=== PATIENT | female | born 1990 | race Caucasian/White ===

== ENCOUNTER 2020-03-09 13:58 | Emergency (ER) | payer OTHER, MEDICAID, SELFPAY ==
[2020-03-09 14:25] VITALS: BP 136/79; PULSE 86; RESP 18; TEMP 36.6; O2SAT 100; BMI 21.4
--- NOTE | 2020-03-09 14:31 | ED_ITS ---
HPI - Medical Clearance <Valentin BonillaHUE Calvillo - Last Filed: 03/09/20 16:58> General Chief complaint: Toxicology Problem Stated complaint: Clearing for detox Time Seen by Provider: 03/09/20 14:05 Source: patient Mode of arrival: Ambulatory Limitations: no limitations History of Present Illness HPI Narrative: This is a 29-year-old female, smoker, with medical history significant for substance abuse and smokes meth and heroin, marijuana, depression, and anxiety presents to ED in request of medical clearance for detox. Patient reports she usually uses methe and heroin about 1 g a day or as much as she can get for last 10 months. Patient had another detox and treatment last summer in [place] but relapsed after 6 months. Patient states she had start using drugs about 2 years ago initially. Patient reports she has good support system. Her also uses drugs but he is also checking himself for detox program. Her motivation this time is trying to get my life back and for well-being. Last use for heroin and meth was this morning. Patient denies history of homicidal suicidal ideation or attempts. Patient is not suicidal or homicidal at this time. Patient denies exposure to known COVID, symptoms for Covid or recent travels. Patient had contacted [facility] and was informed there is available bed at this time. Patient denies using alcohol. Related Information Allergies Allergy/AdvReac Type Severity Reaction Status Date / Time No Known Drug Allergies Allergy Verified 03/09/20 14:25 Review of Systems <Valentin BonillaHUE Calvillo - Last Filed: 03/09/20 16:58> Review of Systems Narrative: General: Denies fever, chills, fatigue, malaise, sweats. HEENT: Denies sinus pain, ear pain, sore throat, difficulty swallowing, dizziness. Respiratory: Denies dyspnea, cough, wheezing, hemoptysis, sputum. Cardiovascular: Denies chest pain, palpitations, orthopnea, edema. Gastrointestinal: Denies nausea, vomiting, abdominal pain, diarrhea, constipation, melena. : Denies dysuria, frequency, incontinence, hematuria, urinary retention. Musculoskeletal: Denies weakness, joint pain or bony pain. Skin: Denies rash, skin lesions, or other. Neurologic: Denies weakness, headache, numbness, change in speech, confusion, seizures, incoordination. Psychiatric: See HPI 12-point review of systems is negative except for those stated above. Patient History <HUE Olmos - Last Filed: 03/09/20 16:58> Medical History (Updated 03/09/20 @ 16:53 by HUE Olmos) Anxiety (Acute) Depression (Acute) Substance addiction (Acute) Social History Smoking Status: Current every day smoker Smoking Status: Current every day smoker Substance Use Type: marijuana, heroin and methamphetamine Exam <HUE Olmos - Last Filed: 03/09/20 16:58> Narrative Exam Narrative: General appearance: well developed, well nourished, in no acute distress. Head: normocephalic, atraumatic, no scalp lesions, non-tender. ENT: Hearing grossly intact. Nose without bleeding, purulent discharge. Airway patent. Neck/Thyroid: neck supple, full range of motion, no visible masses or meningeal signs. No JVD, non-tender without lymphadenopathy. Skin: no suspicious rashes, lesions over visible areas. Warm and dry and appropriate color for ethnicity. Heart: no clubbing, no cyanosis, no edema. S1 and S2 normal. RRR w/o murmurs, clicks, or bruits. Lungs: Breathing even and unlabored. No stridor. No accessory muscles used. Able to speak in full sentences. Chest: normal shape and expansion. Abdomen: non-obese, non-distended. Neurologic: alert and oriented. Cognitive exam, IMAGER and PNS grossly intact on informal exam. Psych: good eye contact, normal affect. Initial Vital Signs Initial Vital Signs: Vital Signs Temperature 97.9 F 03/09/20 14:25 Pulse Rate 86 03/09/20 14:25 Respiratory Rate 18 03/09/20 14:25 Blood Pressure 136/79 03/09/20 14:25 Pulse Oximetry 100 03/09/20 14:25 <Dolly Rivera DO - Last Filed: 03/10/20 07:43> Initial Vital Signs Initial Vital Signs: Vital Signs Temperature 97.9 F 03/09/20 14:25 Pulse Rate 86 03/09/20 14:25 Respiratory Rate 18 03/09/20 14:25 Blood Pressure 136/79 03/09/20 14:25 Pulse Oximetry 100 03/09/20 14:25 Scores <HUE Olmos - Last Filed: 03/09/20 16:58> GCS [place] coma scale eye opening: Spontaneous [place] coma scale verbal response: Orientated [place] coma scale motor response: Obey commands [place] coma scale total score: 15 [facility] - Medical Clearance <HUE Olmos - Last Filed: 03/09/20 16:58> Differential Diagnosis Differential diagnosis: Likely other (Medical clearance) Medical Records Attestation: I reviewed the patient's medical records. Lab Data Attestation: I reviewed the patient's lab results. Result diagrams: 03/09/20 14:48 03/09/20 14:48 Labs: Lab Results 03/09/20 03/09/20 03/09/20 Range/Units 14:25 14:25 14:25 WBC (4.5-11.0) X10^3/uL RBC (4.0-5.2) X10^6/uL Hgb (12.0-16.0) g/dL Hct (36-46) % MCV (80-100) fL MCH (26-34) PG MCHC (30-36) % RDW (11.6-14.8) % Plt Count (150-400) X10^3/uL Neut % (Auto) (50-75) % Lymph % (Auto) (25-40) % [place] % (Auto) (3-14) % Eos % (Auto) (2-4) % Baso % (Auto) (0-2) % Neut # (Auto) (7413-1721) /uL Lymph # (Auto) (6782-8822) /uL [place] # (Auto) (0-900) /uL Eos # (Auto) (0-450) /uL Baso # (Auto) (0-100) /uL Sodium (137-145) mmol/L Potassium (3.4-5.1) mmol/L Chloride (98-107) mmol/L Carbon Dioxide (22-32) mmol/L BUN (7-17) mg/dL Creatinine (0.52-1.04) mg/dL Estimated GFR (>60) mL/min BUN/Creatinine Ratio (6-22) Glucose (70-100) mg/dL Calcium (8.4-10.2) mg/dL Total Bilirubin (0.2-1.3) mg/dL AST (14-36) IU/L ALT (<35) IU/L Alkaline Phosphatase (38-126) U/L Total Protein (6.3-8.2) g/dL Albumin (3.5-5.0) g/dL Globulin (1.7-4.1) g/dL Albumin/Globulin Ratio (1.0-2.8) TSH (0.47-4.68) uIU/mL Free T4 (0.78-2.19) ng/dL Urine Color Yellow Urine Appearance Sl cloudy Urine pH 5.5 (4.5-8.0) Ur Specific [place] >=1.030 H (1.000-1.035) Urine Protein Negative (Negative) Urine Glucose (UA) Negative (Negative) g/dL Urine Ketones Negative (NEGATIVE) Urine Occult Blood Negative (Negative) Urine Nitrate Negative (Negative) Urine Bilirubin Negative (NEGATIVE) Urine Urobilinogen 0.2 (0.2) E.U./dL Ur Leukocyte Esterase Negative (NEGATIVE) Urine RBC 0-1/hpf (0-5/HPF) Urine WBC 1-5/hpf (0-5/HPF) Ur Squamous Epith Cells 5-10 /hpf H (0-5/HPF) Calcium Oxalate Crystal Occasional H Urine Bacteria Moderate (10-30) H (None) Ur Culture Indicated? Cult not indicated Urine Test Negative (Negative) Salicylates (<20) mg/dL U Opiates 300ng/mL cut Positive H (Negative) Ur Oxycodone Screen Negative (Negative) Urine Methadone Screen Negative (Negative) Acetaminophen (10-30) ug/mL Ur Barbiturates Screen Negative (Negative) U Tricyclic Antidepress Negative (Negative) Ur Phencyclidine Scrn Negative (Negative) Ur Amphetamines Screen Positive H (Negative) U Methamphetamines Scrn Positive H (Negative) Ur MDMA Scrn (Ecstasy) Negative (Negative) U Benzodiazepines Scrn Negative (Negative) Urine Cocaine Screen Negative (Negative) U Marijuana (THC) Screen Positive H (Negative) Ethyl Alcohol ( - 10) mg/dL 03/09/20 03/09/20 03/09/20 Range/Units 14:48 14:48 14:48 WBC 7.1 (4.5-11.0) X10^3/uL RBC 4.24 (4.0-5.2) X10^6/uL Hgb 12.6 (12.0-16.0) g/dL Hct 38.4 (36-46) % MCV 90.5 (80-100) fL MCH 29.6 (26-34) PG MCHC 32.7 (30-36) % RDW 12.7 (11.6-14.8) % Plt Count 248 (150-400) X10^3/uL Neut % (Auto) 60.0 (50-75) % Lymph % (Auto) 29.1 (25-40) % [place] % (Auto) 8.4 (3-14) % Eos % (Auto) 1.9 L (2-4) % Baso % (Auto) 0.6 (0-2) % Neut # (Auto) 4300 (2415-4335) /uL Lymph # (Auto) 2100 (6396-6822) /uL [place] # (Auto) 600 (0-900) /uL Eos # (Auto) 100 (0-450) /uL Baso # (Auto) 0 (0-100) /uL Sodium 137 (137-145) mmol/L Potassium 4.9 (3.4-5.1) mmol/L Chloride 103 (98-107) mmol/L Carbon Dioxide 29 (22-32) mmol/L BUN 19 H (7-17) mg/dL Creatinine 0.71 (0.52-1.04) mg/dL Estimated GFR > 60.0 (>60) mL/min BUN/Creatinine Ratio 26.8 H (6-22) Glucose 104 H (70-100) mg/dL Calcium 9.4 (8.4-10.2) mg/dL Total Bilirubin 0.4 (0.2-1.3) mg/dL AST 23 (14-36) IU/L ALT 16 (<35) IU/L Alkaline Phosphatase 89 (38-126) U/L Total Protein 7.2 (6.3-8.2) g/dL Albumin 4.2 (3.5-5.0) g/dL Globulin 3.0 (1.7-4.1) g/dL Albumin/Globulin Ratio 1.4 (1.0-2.8) TSH 2.54 (0.47-4.68) uIU/mL Free T4 1.05 (0.78-2.19) ng/dL Urine Color Urine Appearance Urine pH (4.5-8.0) Ur Specific [place] (1.000-1.035) Urine Protein (Negative) Urine Glucose (UA) (Negative) g/dL Urine Ketones (NEGATIVE) Urine Occult Blood (Negative) Urine Nitrate (Negative) Urine Bilirubin (NEGATIVE) Urine Urobilinogen (0.2) E.U./dL Ur Leukocyte Esterase (NEGATIVE) Urine RBC (0-5/HPF) Urine WBC (0-5/HPF) Ur Squamous Epith Cells (0-5/HPF) Calcium Oxalate Crystal Urine Bacteria (None) Ur Culture Indicated? Urine Test (Negative) Salicylates < 1.0 (<20) mg/dL U Opiates 300ng/mL cut (Negative) Ur Oxycodone Screen (Negative) Urine Methadone Screen (Negative) Acetaminophen < 10 L (10-30) ug/mL Ur Barbiturates Screen (Negative) U Tricyclic Antidepress (Negative) Ur Phencyclidine Scrn (Negative) Ur Amphetamines Screen (Negative) U Methamphetamines Scrn (Negative) Ur MDMA Scrn (Ecstasy) (Negative) U Benzodiazepines Scrn (Negative) Urine Cocaine Screen (Negative) U Marijuana (THC) Screen (Negative) Ethyl Alcohol < 10 ( - 10) mg/dL MDM Narrative Medical decision making narrative: This is a 29-year-old female who presents to ED for medical clearance before she admitting herself to [facility] detox facility for substance use-heroin, meth, and marijuana. Patient has medical history of depression and anxiety and takes Zoloft 200 mg daily which she had taken this morning. Patient is alert, oriented, cooperative, denies suicidal or homicidal thoughts. Patient is not . Lab tests are unremarkable. UDS is positive for amphetamine, methamphetamine, opiates and marijuana. Patient denies known exposure to COVID, denies any COVID related symptoms, and denies recent travel. Patient's physical exam is unremarkable. Vital signs stable and afebriile. Patient is medically cleared, ready for discharge and safe to go to detox facility. The patient will be taken by her sister after she is discharged from the hospital. <Dolly Rivera DO - Last Filed: 03/10/20 07:43> Lab Data Labs: Lab Results 03/09/20 03/09/20 03/09/20 Range/Units 14:25 14:25 14:25 WBC (4.5-11.0) X10^3/uL RBC (4.0-5.2) X10^6/uL Hgb (12.0-16.0) g/dL Hct (36-46) % MCV (80-100) fL MCH (26-34) PG MCHC (30-36) % RDW (11.6-14.8) % Plt Count (150-400) X10^3/uL Neut % (Auto) (50-75) % Lymph % (Auto) (25-40) % [place] % (Auto) (3-14) % Eos % (Auto) (2-4) % Baso % (Auto) (0-2) % Neut # (Auto) (2837-0600) /uL Lymph # (Auto) (0624-3229) /uL [place] # (Auto) (0-900) /uL Eos # (Auto) (0-450) /uL Baso # (Auto) (0-100) /uL Sodium (137-145) mmol/L Potassium (3.4-5.1) mmol/L Chloride (98-107) mmol/L Carbon Dioxide (22-32) mmol/L BUN (7-17) mg/dL Creatinine (0.52-1.04) mg/dL Estimated GFR (>60) mL/min BUN/Creatinine Ratio (6-22) Glucose (70-100) mg/dL Calcium (8.4-10.2) mg/dL Total Bilirubin (0.2-1.3) mg/dL AST (14-36) IU/L ALT (<35) IU/L Alkaline Phosphatase (38-126) U/L Total Protein (6.3-8.2) g/dL Albumin (3.5-5.0) g/dL Globulin (1.7-4.1) g/dL Albumin/Globulin Ratio (1.0-2.8) TSH (0.47-4.68) uIU/mL Free T4 (0.78-2.19) ng/dL Urine Color Yellow Urine Appearance Sl cloudy Urine pH 5.5 (4.5-8.0) Ur Specific [place] >=1.030 H (1.000-1.035) Urine Protein Negative (Negative) Urine Glucose (UA) Negative (Negative) g/dL Urine Ketones Negative (NEGATIVE) Urine Occult Blood Negative (Negative) Urine Nitrate Negative (Negative) Urine Bilirubin Negative (NEGATIVE) Urine Urobilinogen 0.2 (0.2) E.U./dL Ur Leukocyte Esterase Negative (NEGATIVE) Urine RBC 0-1/hpf (0-5/HPF) Urine WBC 1-5/hpf (0-5/HPF) Ur Squamous Epith Cells 5-10 /hpf H (0-5/HPF) Calcium Oxalate Crystal Occasional H Urine Bacteria Moderate (10-30) H (None) Ur Culture Indicated? Cult not indicated Urine Test Negative (Negative) Salicylates (<20) mg/dL U Opiates 300ng/mL cut Positive H (Negative) Ur Oxycodone Screen Negative (Negative) Urine Methadone Screen Negative (Negative) Acetaminophen (10-30) ug/mL Ur Barbiturates Screen Negative (Negative) U Tricyclic Antidepress Negative (Negative) Ur Phencyclidine Scrn Negative (Negative) Ur Amphetamines Screen Positive H (Negative) U Methamphetamines Scrn Positive H (Negative) Ur MDMA Scrn (Ecstasy) Negative (Negative) U Benzodiazepines Scrn Negative (Negative) Urine Cocaine Screen Negative (Negative) U Marijuana (THC) Screen Positive H (Negative) Ethyl Alcohol ( - 10) mg/dL 03/09/20 03/09/20 03/09/20 Range/Units 14:48 14:48 14:48 WBC 7.1 (4.5-11.0) X10^3/uL RBC 4.24 (4.0-5.2) X10^6/uL Hgb 12.6 (12.0-16.0) g/dL Hct 38.4 (36-46) % MCV 90.5 (80-100) fL MCH 29.6 (26-34) PG MCHC 32.7 (30-36) % RDW 12.7 (11.6-14.8) % Plt Count 248 (150-400) X10^3/uL Neut % (Auto) 60.0 (50-75) % Lymph % (Auto) 29.1 (25-40) % [place] % (Auto) 8.4 (3-14) % Eos % (Auto) 1.9 L (2-4) % Baso % (Auto) 0.6 (0-2) % Neut # (Auto) 4300 (0470-3354) /uL Lymph # (Auto) 2100 (8709-4850) /uL [place] # (Auto) 600 (0-900) /uL Eos # (Auto) 100 (0-450) /uL Baso # (Auto) 0 (0-100) /uL Sodium 137 (137-145) mmol/L Potassium 4.9 (3.4-5.1) mmol/L Chloride 103 (98-107) mmol/L Carbon Dioxide 29 (22-32) mmol/L BUN 19 H (7-17) mg/dL Creatinine 0.71 (0.52-1.04) mg/dL Estimated GFR > 60.0 (>60) mL/min BUN/Creatinine Ratio 26.8 H (6-22) Glucose 104 H (70-100) mg/dL Calcium 9.4 (8.4-10.2) mg/dL Total Bilirubin 0.4 (0.2-1.3) mg/dL AST 23 (14-36) IU/L ALT 16 (<35) IU/L Alkaline Phosphatase 89 (38-126) U/L Total Protein 7.2 (6.3-8.2) g/dL Albumin 4.2 (3.5-5.0) g/dL Globulin 3.0 (1.7-4.1) g/dL Albumin/Globulin Ratio 1.4 (1.0-2.8) TSH 2.54 (0.47-4.68) uIU/mL Free T4 1.05 (0.78-2.19) ng/dL Urine Color Urine Appearance Urine pH (4.5-8.0) Ur Specific [place] (1.000-1.035) Urine Protein (Negative) Urine Glucose (UA) (Negative) g/dL Urine Ketones (NEGATIVE) Urine Occult Blood (Negative) Urine Nitrate (Negative) Urine Bilirubin (NEGATIVE) Urine Urobilinogen (0.2) E.U./dL Ur Leukocyte Esterase (NEGATIVE) Urine RBC (0-5/HPF) Urine WBC (0-5/HPF) Ur Squamous Epith Cells (0-5/HPF) Calcium Oxalate Crystal Urine Bacteria (None) Ur Culture Indicated? Urine Test (Negative) Salicylates < 1.0 (<20) mg/dL U Opiates 300ng/mL cut (Negative) Ur Oxycodone Screen (Negative) Urine Methadone Screen (Negative) Acetaminophen < 10 L (10-30) ug/mL Ur Barbiturates Screen (Negative) U Tricyclic Antidepress (Negative) Ur Phencyclidine Scrn (Negative) Ur Amphetamines Screen (Negative) U Methamphetamines Scrn (Negative) Ur MDMA Scrn (Ecstasy) (Negative) U Benzodiazepines Scrn (Negative) Urine Cocaine Screen (Negative) U Marijuana (THC) Screen (Negative) Ethyl Alcohol < 10 ( - 10) mg/dL Discharge Plan Departure Patient Disposition: Home Clinical Impression: Substance addiction, Normal physical exam Discharge Date/Time: 03/09/20 17:08 Instructions: DI for Substance Use Disorder Activity Restrictions/Additional Instructions: You have been diagnosed with [substance use disorder and medical clearance. Normal physical exam. Labs were done as the [facility] requested.]. What to do: *Take your medications as directed. *Follow up with your primary care provider in 2-3 days, call for an appointment. Please check yourself to the receiving facility. Let them know you were seen in the ED and that we asked you to be seen in follow up. *Return to ED if you have any new, worsening, or concerning symptoms, such as [chest pain, breathing difficulty, unable to tolerate fluids, fever, or any a cute concerns]. Referrals: Mark Altamirano MD [Primary Care Provider] - <Dolly Rivera DO - Last Filed: 03/10/20 07:43> [facility] [place] Attestation: I was immediately available in the department for consultation. Documentation has been reviewed. I agree with assessment and plan.
[2020-03-09 14:36] LABS: Ur Creatinine Normal (Normal); Ur Specific Gravity Normal (Normal); Urine Amphetamines Positive (Negative); Urine Barbiturates Negative (Negative); Urine Benzodiazepines Negative (Negative); Urine Cocaine Negative (Negative); Urine MDMA Negative (Negative); Urine Methadone Negative (Negative); Urine Methamphetamines Positive (Negative); Urine Oxycodone Negative (Negative); Urine Phencyclidine Negative (Negative); Urine Tetrahydrocannabinol Positive (Negative); Urine Tricyclic Antidepressant Negative (Negative); Urine pH Normal (Normal)
[2020-03-09 14:37] LABS: UR Morphine/Opiate cutoff 300 Positive (Negative)
[2020-03-09 14:48] LABS: Pregnancy Test Urine Negative (Negative)
[2020-03-09 14:54] LABS: Add Manual Diff / Slide Review NO; Basophils Absolute Auto 0 /uL (0-100); Basophils Percent Auto 0.6 % (0-2); Eosinophils Absolute Auto 100 /uL (0-450); Eosinophils Percent Auto 1.9 % (2-4); Hematocrit 38.4 % (36-46); Hemoglobin 12.6 g/dL (12.0-16.0); Lymphocytes Absolute Auto 2100 /uL (1100-4500); Lymphocytes Percent Auto 29.1 % (25-40); Mean Corpuscular HGB Conc 32.7 % (30-36); Mean Corpuscular Hemoglobin 29.6 PG (26-34); Mean Corpuscular Volume 90.5 fL (80-100); Monocytes Absolute Auto 600 /uL (0-900); Monocytes Percent Auto 8.4 % (3-14); Neutrophils Absolute Auto 4300 /uL (1500-7000); Platelet Count 248 X10^3/uL (150-400); Red Blood Cell Count 4.24 X10^6/uL (4.0-5.2); Red Cell Distribution Width 12.7 % (11.6-14.8); White Blood Cell Count 7.1 X10^3/uL (4.5-11.0)
[2020-03-09 15:11] LABS: Acetaminophen < 10 ug/mL (10-30); Alanine Aminotransferase 16 IU/L (<35); Albumin 4.2 g/dL (3.5-5.0); Albumin Globulin Ratio 1.4 (1.0-2.8); Alkaline Phosphatase 89 U/L (38-126); Aspartate Aminotransferase 23 IU/L (14-36); BUN Creatinine Ratio 26.8 (6-22); Bilirubin Total 0.4 mg/dL (0.2-1.3); Blood Urea Nitrogen 19 mg/dL (7-17); Calcium 9.4 mg/dL (8.4-10.2); Carbon Dioxide 29 mmol/L (22-32); Chloride 103 mmol/L (98-107); Estimated Glomerular Filt Rate > 60.0 mL/min (>60); Ethanol (ETOH) < 10 mg/dL; Glucose 104 mg/dL (70-100); HEMOLYSIS < 15 (0-50); Potassium 4.9 mmol/L (3.4-5.1); Salicylate < 1.0 mg/dL (<20); Sodium 137 mmol/L (137-145); Total Protein 7.2 g/dL (6.3-8.2)
[2020-03-09 16:01] LABS: Appearance Urine UA SL CLOUDY; Bilirubin Urine UA NEGATIVE (NEGATIVE); Color Urine UA YELLOW; Glucose Urine UA NEGATIVE (Negative); Ketones Urine UA NEGATIVE (NEGATIVE); Leukocyte Esterase Urine UA NEGATIVE (NEGATIVE); Nitrite Urine UA NEGATIVE (Negative); Occult Blood Urine UA NEGATIVE (Negative); Protein Urine UA NEGATIVE (Negative); Specific Gravity Urine UA >=1.030 (1.000-1.035); Urobilinogen Urine UA 0.2 E.U./dL (0.2); pH Urine UA 5.5 (4.5-8.0)
[2020-03-09 16:09] LABS: Free T4, Direct Thyroxine 1.05 ng/dL (0.78-2.19)
[2020-03-09 16:15] LABS: Bacteria Urine Moderate (10-30); Calcium Oxalate Crystals Urine Occasional; RBC Urine 0-1/HPF (0-5/HPF); Squamous Epithelial Cell Urine 5-10 /HPF (0-5/HPF); WBC Urine 1-5/HPF (0-5/HPF)
[2020-03-09 16:16] LABS: Culture Indicated Urine Cult Not Indicated
[2020-03-09 16:23] LABS: Thyroid Stimulating Hormone 2.54 uIU/mL (0.47-4.68)
== END 2020-03-09 17:08 | disposition home or self-care (01) ==
PROVIDERS: Emergency Provider Nurse Practitioner Family; Family Provider Family Medicine; PCP Family Medicine
DX: F19.20 Other psychoactive substance dependence, uncomplicated (principal)
CPT/HCPCS: 36415; 80053; 80305; 80320; 80329; 81001; 81025; 84439; 84443; 85025; 99283; G0480

== ENCOUNTER 2020-04-28 11:39 | Emergency (ER) | payer OTHER, MEDICAID, SELFPAY ==
[2020-04-28 11:48] VITALS: BP 143/78; PULSE 65; RESP 16; TEMP 37.3; O2SAT 99; BMI 25.4
--- NOTE | 2020-04-28 13:12 | ED_ITS ---
HPI - Dental/Oral <HUE Olmos - Last Filed: 04/28/20 13:31> General Chief complaint: Dental/Oral Stated complaint: tooth pain on R side started yesterday Time Seen by Provider: 04/28/20 12:38 Source: patient Mode of arrival: Ambulatory Limitations: no limitations History of Present Illness HPI Narrative: This is a 29-year-old female, smoker, who has past medical history for substance abuse, depression who is currently taking Suboxone and Zoloft presents to ED with severe right upper teeth pain for last 2 days. Patient reports dental problem was ongoing longer than 3 weeks so far. Patient reports subjective fever and chills, right-side facial swelling, pain from right upper tooth radiating all the way to right posterior head and right-sided cervical lymph node discomfort. Patient states she feels hole in her tooth and felt some foul drainage which was tastes horrible and had 1 episode of emesis this morning. Patient reports pain as 10/10 and constant. LMP now and reports no chance for . She had taken 4 tabs of Advil every hour since early this morning, also had tried coconut oil, clove oil, Orajel, beet roots to help with pain without improvements. Related Data Previous Rx's Medication Instructions Recorded penicillin V potassium 500 mg PO QID 7 Days #28 tab 04/28/20 Allergies Allergy/AdvReac Type Severity Reaction Status Date / Time No Known Drug Allergies Allergy Verified 04/28/20 11:52 Review of Systems <HUE Olmos - Last Filed: 04/28/20 13:31> Review of Systems Narrative: General: See HPI HEENT: See HPI Respiratory: Denies dyspnea, cough, wheezing, hemoptysis, sputum. Cardiovascular: Denies chest pain, palpitations, orthopnea, edema. Gastrointestinal: Denies nausea, (+) vomiting, abdominal pain, diarrhea, constipation, melena. Skin: Denies rash, skin lesions, or other. Neurologic: Denies weakness, headache, numbness, change in speech, confusion, seizures, incoordination. Psychiatric: No concerning psychosocial issues. Patient History <HUE Olmos - Last Filed: 04/28/20 13:31> Medical History Anxiety Depression Substance addiction Social History Smoking Status: Current every day smoker Smoking Status: Current every day smoker tobacco type: cigarettes alcohol intake frequency: 0-2 drinks per day Substance Use Type: former substance user, marijuana, heroin and methamphetamine Exam <HUE Olmos - Last Filed: 04/28/20 13:31> Narrative Exam Narrative: General appearance: well developed, well nourished, in acute distress from pain, tearful and anxious. Head: normocephalic, atraumatic, no scalp lesions, non-tender. ENT: Bilateral auditory canals and tympanic membranes clear. Hearing grossly intact. Nose without bleeding, purulent discharge, septal hematoma or deviation. Turbinate without erythema or swelling. Facial sinuses nontender to palpate. Mucous membrane moist, no mucosal lesion. Throat without erythema, tonsillar hypertrophy or exudate. Uvula in midline, airway patent. No obvious dental caries, drainage, swelling to gums noted. Mild swelling to right cheeck and tender to palpate. Neck/Thyroid: neck supple, full range of motion, no visible masses or meningeal signs. No JVD, right anterior cervical and submandibular lymph nodes tender to palpate. Skin: no suspicious rashes, lesions over visible areas. Warm and dry and appropriate color for ethnicity. Heart: no clubbing, no cyanosis, no edema. Lungs: Breathing even and unlabored. No stridor. No accessory muscles used. Able to speak in full sentences. Chest: normal shape and expansion. Abdomen: non-obese, non-distended. Neurologic: alert and oriented. Cognitive exam, REPACKER and PNS grossly intact on informal exam. Psych: good eye contact, normal affect. Initial Vital Signs Initial Vital Signs: Vital Signs Temperature 99.2 F 04/28/20 11:48 Pulse Rate 65 04/28/20 11:48 Respiratory Rate 16 04/28/20 11:48 Blood Pressure 143/78 H 04/28/20 11:48 Pulse Oximetry 99 04/28/20 11:48 <Dolly Rivera DO - Last Filed: 04/30/20 06:58> Initial Vital Signs Initial Vital Signs: Vital Signs Temperature 99.2 F 04/28/20 11:48 Pulse Rate 65 04/28/20 11:48 Respiratory Rate 16 04/28/20 11:48 Blood Pressure 143/78 H 04/28/20 11:48 Pulse Oximetry 99 04/28/20 11:48 Scores <Valentin JonesHUE Calvillo - Last Filed: 04/28/20 13:31> GCS [place] coma scale eye opening: Spontaneous [place] coma scale verbal response: Orientated [place] coma scale motor response: Obey commands [place] coma scale total score: 15 qSOFA Altered Mental Status (GCS <15): No Respiratory rate greater than/equal to 22: No Systolic blood pressure less than or equal to 100: No qSOFA Total: 0 0-1 Not High Risk 1-3 High risk Course <Valentin BonillaHUE Calvillo - Last Filed: 04/28/20 13:31> Vital Signs Vital signs: Vital Signs - 8 hr 04/28/20 11:48 Temperature 99.2 F Pulse Rate 65 Respiratory Rate 16 Blood Pressure 143/78 H Pulse Oximetry 99 <Dolly Rivera DO - Last Filed: 04/30/20 06:58> Vital Signs Vital signs: Vital Signs - 8 hr 04/28/20 11:48 Temperature 99.2 F Pulse Rate 65 Respiratory Rate 16 Blood Pressure 143/78 H Pulse Oximetry 99 MDM - Dental/Oral <Valentin SimmonsSAEED solanoP - Last Filed: 04/28/20 13:31> Differential Diagnosis Differential diagnosis: Likely dental caries, toothache and dental abscess Medical Records Attestation: I reviewed the patient's medical records. MDM Narrative Medical decision making narrative: This is a 29-year-old female presents to ED with severe right upper teeth pain for last 2 days despite she tried home remedies and taking ibuprofen excessive dose and frequency. She does not appears to be toxic. She is afebrile with within normal vital signs. Physical exam without obvious abnormal findings except mild swelling to right cheek and tender to palpate in right anterior cervical and submandibular lymph nodes. Will treat with antibiotic medication at this time since patient has an appointment at [facility] on the May 16, 2020. Penicillin VK 500 mg q.i.d. for 7 days prescribed for patient. Patient is currently taking Suboxone for history of substance abuse. Patient advised not to take overly and frequently than suggested for ibuprofen to prevent GI ulcers and to add Tylenol in addition to for pain management. Patient also advised to try cloves on affected site for pain managment. Return precautions discussed with patient and she verbalized understanding and agreement with the treatment plan. Discharge Plan Departure Patient Disposition: Home Clinical Impression: Pain, dental Instructions: DI for Dental Pain Activity Restrictions/Additional Instructions: You have been diagnosed with [severe dental pain on right upper teeth.]. What to do: *Take your medications as directed. Please start antibiotic medication penicillin VK 500 mg 4 times a day for next 7 days. You can use Tylenol 650- 1000 mg at a time up to 3 to 4 times a day for pain. You can use ibuprofen/Motrin 400-800 mg at a time up to 3 times a day as needed for pain with food to decrease GI irritation. Please do take more than this amount and frequently. Medication has been transmitted to [facility]. *Follow up with your primary care provider in 2-3 days, call for an appointment. Let them know you were seen in the ED and that we asked you to be seen in follow up. Please contact [facility] dental clinic in [place] on Wednesday to be evaluated sooner. Another option would be Dental school clinic that you could contact. *Return to ED if you have any new, worsening, or concerning symptoms, such as [chest pain, breathing difficulty, fever, unable to tolerate fluids, abdominal pain, or any acute concerns]. Prescriptions: New penicillin V potassium 500 mg tablet 500 mg PO QID 7 Days Qty: 28 RF: 0 Referrals: Mark Altamirano MD [Primary Care Provider] - <Dolly Rivera DO - Last Filed: 04/30/20 06:58> [facility] [place] Attestation: I was immediately available in the department for consultation. Documentation has been reviewed. I agree with assessment and plan.
[2020-04-28 13:18] VITALS: BP 136/90; PULSE 59; RESP 18; O2SAT 100
[2020-04-28 13:27] VITALS: BP 130/84; PULSE 79; RESP 16; O2SAT 98
== END 2020-04-28 13:28 | disposition home or self-care (01) ==
PROVIDERS: Emergency Provider Nurse Practitioner Family; Family Provider Family Medicine; PCP Family Medicine
DX: K08.89 Other specified disorders of teeth and supporting structures (principal); F41.9 Anxiety disorder, unspecified; F32.9 Major depressive disorder, single episode, unspecified
CPT/HCPCS: 99281

== ENCOUNTER 2020-12-14 10:21 | Emergency (ER) | payer OTHER, MEDICAID, SELFPAY ==
[2020-12-14 10:23] VITALS: BP 153/78; PULSE 71; RESP 15; TEMP 36.4; O2SAT 98; BMI 25.8
--- NOTE | 2020-12-14 10:37 | ED.NAVMDI ---
HPI - Nausea/Vomiting/Diarrhea General Chief complaint: Upper Respiratory Symptoms Stated complaint: vomitting/diarrea/tired covid symptoms Time Seen by Provider: 12/14/20 10:24 History of Present Illness HPI Narrative: 30-year-old female nonsmoker with noncontributory medical history presents with her son and a chief complaint of concern about a COVID exposure about 1 week ago. She states that about 2 days ago she started having nasal congestion, runny nose, sore throat and GI symptoms including nausea, vomiting and diarrhea. She has had no fever but she has felt fatigued and had some chills. She denies chest pain, shortness of breath or any significant cough. She denies any dysuria, frequency or urgency Related Data Allergies Allergy/AdvReac Type Severity Reaction Status Date / Time No Known Drug Allergies Allergy Verified 12/14/20 10:38 Review of Systems Review of Systems Narrative: GENERAL: See HPI HEENT: See HPI RESPIRATORY: Denies dyspnea, cough, wheezing, hemoptysis, sputum. CARDIOVASCULAR: Denies chest pain, palpitations, orthopnea, edema, GASTROINTESTINAL: See HPI : Denies dysuria, frequency, incontinence, hematuria, urinary retention. MUSCULOSKELETAL: denies weakness, joint pain, or bony pain SKIN: Denies rash, skin lesions, or other NEUROLOGIC: Denies weakness, headache, numbness, change in speech, confusion, seizures, incoordination. PSYCHIATRIC: No concerning psychosocial issues. 12 point review of systems is negative except for those stated above Patient History Medical History Anxiety Depression Substance addiction Social History Smoking Status: Current every day smoker Smoking Status: Current every day smoker tobacco type: cigarettes alcohol intake frequency: 0-2 drinks per day Substance Use Type: former substance user, marijuana, heroin and methamphetamine Exam Narrative Exam Narrative: GEN: 30-year-old female AOx3 and in mild distress EYES: Pupils are equal, round, and reactive to light and accommodation. Extraoccular muscles are intact bilaterally. There is no subconjunctival hemorrhage or exudate. CHEST: Lungs are clear to auscultation bilaterally and free of wheezes, rales, or rhonchi. Heart rate is regular rhythm, there are no murmurs, clicks, rubs, or gallops. There is no chest wall tenderness. ABD: Abdomen is soft and nontender. There is no guarding or rebound. Bowel sounds are normal in all 4 quadrants. There is no mass or organomegaly. EXT: Full painless ROM of all extremities with no loss of sensation or strength. SKIN: Warm, pink, and dry. No erythema or rash Initial Vital Signs Initial Vital Signs: Vital Signs Temperature 97.6 F 12/14/20 10:23 Pulse Rate 71 12/14/20 10:23 Respiratory Rate 15 12/14/20 10:23 Blood Pressure 153/78 H 12/14/20 10:23 Pulse Oximetry 98 12/14/20 10:23 Course Orders Ordered: ED Orders 12/14/20 10:30 COVID19 -Nasal swab/Pre-Proc Stat Vital Signs Vital signs: Vital Signs - 8 hr 12/14/20 10:23 Temperature 97.6 F Pulse Rate 71 Respiratory Rate 15 Blood Pressure 153/78 H Pulse Oximetry 98 MDM - Nausea/Vomiting/Diarrhea Lab Data Labs: Lab Results 12/14/20 Range/Units 10:30 SARS-CoV-2 (PCR) Negative (Negative) Discharge Plan Departure Patient Disposition: Home Clinical Impression: Diarrhea Qualifiers: Diarrhea type: unspecified type Qualified Code(s): R19.7 - Diarrhea, unspecified Instructions: Can COVID-19 be prevented? Activity Restrictions/Additional Instructions: There is no evidence of an emergent or life threatening illness at this time, but follow up with your doctor in 1-2 days is recommended nonetheless to continue to rule out serious underlying causes of your symptoms. Please call the office for an appointment. Please return to the Emergency Department for any worsening or persistent symptoms. Please take medications as directed. Referrals: Mark Altamirano MD [Primary Care Provider] -
--- NOTE | 2020-12-14 10:47 | PC.NURSE ---
Patient reports nausea/vomiting/diarrhea for past 3 days with accompanying sore throat that she describes as swollen glands but no pain. Denies chest pain or SOB, lung sounds are clear in all arenas, denies cough.
[2020-12-14 11:19] LABS: COVID19 -Nasal RAPID Negative (Negative)
== END 2020-12-14 11:27 | disposition home or self-care (01) ==
PROVIDERS: Emergency Provider Emergency Medicine; Family Provider Family Medicine; PCP Family Medicine
DX: R19.7 Diarrhea, unspecified (principal); Z20.822 Contact with and (suspected) exposure to COVID-19
CPT/HCPCS: 87635; 99281; 99282; C9803

== ENCOUNTER → 2023-02-28 16:22 | Outpatient (CLI) | payer BC, SELFPAY ==
--- NOTE | 2023-02-28 16:24 | DI.RAD.S_ITS ---
PROCEDURE: XR KNEE LT 3V INDICATIONS: Left knee strain TECHNIQUE: 3 views of the knee were acquired. COMPARISON: None. FINDINGS: Bones: No fractures or dislocations. No suspicious bony lesions. Soft tissues: Mild joint effusion. No suspicious soft tissue calcifications. IMPRESSION: Mild effusion. No visualized acute fracture or dislocation. However, if clinical concern and/or pain persist, short interval imaging followup in 7-10 days is recommended, as occult injury cannot be definitively excluded. Dictated by: Ashely Sanderson M.D. on 02/28/2023 at 17:33 Approved by: Ashely Sanderson M.D. on 02/28/2023 at 17:33
== END ==
PROVIDERS: Family Provider Family Medicine; PCP Family Medicine; Referring Provider Nurse Practitioner Family; Visit Provider Nurse Practitioner Family
DX: S86.912A Strain of unspecified muscle(s) and tendon(s) at lower leg level, left leg, initial encounter (principal); M25.462 Effusion, left knee
CPT/HCPCS: 73562